=== PATIENT | female | born 1955 | race Two or more races ===

== ENCOUNTER 2018-03-26 11:49 | Day surgery (SDC) | payer MEDICARE, BC ==
--- NOTE | 2018-03-25 12:45 | Pre-op HX & Phy Repo 2 SIG ---
DATE OF ENDOSCOPY: 03/26/2018 PRE-ENDOSCOPY HISTORY AND PHYSICAL Scheduled for outpatient Kock pouch endoscopy on March 26, 2018. HISTORY OF PRESENT ILLNESS: The patient is a 63-year-old female in overall good health, who has a malfunctioning Kock pouch continent ileostomy. The patient had ulcerative colitis at age 25 and underwent proctocolectomy with Kock pouch in 1980. Recently, she has had six months of difficulty intubating about 3 inches into the stoma as well as some bleeding just inside the stoma opening itself. She has not had any incontinence. She uses a nasopharyngeal airway to intubate rather than a typical 30-Lao Silicone Medena or Yessi catheter. She states she underwent endoscopy of her pouch in 2013 and was told that her nipple valve was weak. She is scheduled to undergo Kock pouch endoscopy. She has not had any history of pouchitis. PAST MEDICAL HISTORY/MEDICATIONS: Ramipril for hypertension, Crestor, omega-3, aspirin 81 mg, and vitamins. ALLERGIES: Intravenous iodine contrast and shrimp. OPERATIONS: In addition to the above, total abdominal hysterectomy and bilateral salpingo-oophorectomy in 1990. REVIEW OF SYSTEMS: She has had kidney stones in the past. PHYSICAL EXAMINATION: GENERAL: The patient is 5 feet 1 inch, approximately 150 pounds. She is arriving from out of town, will be examined upon arrival and dictated separately. IMPRESSION: 1. Malfunctioning Kock pouch continent ileostomy with difficulty intubating and bleeding, but no incontinence. 2. History of ulcerative colitis. 3. STATUS POST MULTIPLE ABDOMINAL OPERATIONS: 1. Proctocolectomy and Kock pouch in 1980. 2. revision of Kock pouch stoma 1986 3. Total abdominal hysterectomy and bilateral salpingo-oophorectomy 1990 PLAN: I have had a full discussion with the patient regarding the nature of the endoscopy, which does not require any anesthesia or sedation, indications, alternatives, options, and risks. She understands and agrees to proceed. Valdemar Ramos M.D. DR: ARNOLOD/JULIANN JOB#: [id number] CC: ARIANA
[~2018-03-26] VITALS: Ht 154.9 cm; Wt 68.9 kg
[2018-03-26 12:24] VITALS: BP 142/78
[2018-03-26] MEDS ORDERED: CRESTOR10 M2 ORAL (12:26)
[2018-03-26] MEDS ORDERED: RAMIPRIL2.5 MG ORAL (12:26)
[2018-03-26] MEDS ORDERED: VITAMIN D400 INTLU ORAL (12:27)
[2018-03-26] MEDS ORDERED: MULTIVITAMINS1 EAC2 ORAL (12:27)
[2018-03-26] MEDS ORDERED: FISH OIL CAP1000 MG ORAL (12:27)
[2018-03-26] MEDS ORDERED: VITAMIN B125000 MCG PO (12:28)
[2018-03-26] MEDS ORDERED: VITAMIN C500 M1 ORAL (12:28)
[2018-03-26] MEDS ORDERED: CENTRUM SILVER1 EAC4 PO (12:28)
[2018-03-26] MEDS ORDERED: VITAMIN B COMP1 EAC5 PO (12:28)
[2018-03-26] MEDS ORDERED: ASPIRIN81 MG ORAL (12:28)
--- NOTE | 2018-03-26 12:47 | Pre-Procedure Note/Attestation ---
Pre-Procedure Note/Attestation Complete Prior to Procedure Planned Procedure: not applicable Procedure Narrative: Kock pouch endoscopy Indications for Procedure Pre-Operative Diagnosis: malfunctioning Kock pouch continent ileostomy Attestation I attest that I discussed the nature of the procedure; its benefits; risks and complications; and alternatives (and the risks and benefits of such alternatives ), prior to the procedure, with the patient (or the patient's legal senior sales representative). I attest that, if there was a reasonable possibility of needing a blood transfusion, the patient (or the patient's legal senior sales representative) was given the [facility] standardized written summary, pursuant to the Trey Eugene Blood Safety Act ([place] Health and Safety Code # 1645, as amended). I attest that I re-evaluated the patient just prior to the surgery and that there has been no change in the patient's H&P, except as documented below: none Valdemar Ramos MD Mar 26, 2018 12:47
--- NOTE | 2018-03-26 13:06 | Brief Operative Note ---
Immediate Post Operative Note Operative Note Pre-op Diagnosis: malfunctioning Kock pouch continent ileostomy Procedure: Kock pouch endoscopy Post-op Diagnosis: angulation of access segment at 5cm into stoma. Normal pouch and well formed nipple valve Post-op Diagnosis: same as pre-op Findings: consistent w/pre-op dx studies Surgeon: vinh Anesthesia: other - none Specimen: none Complications: none Condition: stable Fluids: none Estimated Blood Loss: none Drains: none Implant(s) used?: No Valdemar Ramos MD Mar 26, 2018 13:06
[2018-03-26 13:10] VITALS: BP 133/76
--- NOTE | 2018-03-26 16:00 | Procedure Note ---
DATE OF PROCEDURE: 03/26/2018 ENDOSCOPIST: Valdemar Ramos M.D. ANESTHESIA: None. SEDATION: None. PREENDOSCOPY DIAGNOSES: 1. Malfunctioning Kock pouch continent ileostomy with difficulty with intubation and bleeding, but no incontinence. 2. History of ulcerative colitis. 3. Status post multiple abdominal operations. 3.1. Proctocolectomy and Kock pouch in 1980. 3.2. Revision of Kock pouch stoma in 1986. 3.3. Total abdominal hysterectomy and bilateral salpingo-oophorectomy 1990 POSTENDOSCOPY DIAGNOSES: 1. Malfunctioning Kock pouch continent ileostomy with difficulty with intubation and bleeding, but no incontinence. 2. History of ulcerative colitis. 3. Status post multiple abdominal operations. 3.1. Proctocolectomy and Kock pouch in 1980. 3.2. Revision of Kock pouch stoma in 1986. 3.3. Total abdominal hysterectomy and bilateral salpingo-oophorectomy 1990 ENDOSCOPY PERFORMED: Kock pouch endoscopy. FINDINGS: A marked angulation of the access segment at approximately 5 cm into the stoma. The pouch mucosa is normal and the nipple valve was well formed. PROCEDURE: Before beginning with the endoscopy, the patient is examined. The abdomen is soft and slightly obese. There is a midline scar. The stoma of the Kock pouch is low in the right lower quadrant and within a fold so it is somewhat indented, but has a normal small orifice. The patient was positioned supine and without any anesthesia or sedation given or required and using a GIF-P140 endoscope, the stoma was entered. It required some manipulation to negotiate the angulation, but then the pouch was entered with the distance from the tip of the valve to the stoma orifice approximately 9 cm. The pouch was distensible and the mucosa normal. Retroflexed views revealed a circumferentially well-formed nipple valve. Withdrawal views confirmed the above findings. There was no source of bleeding, but multiple areas of healing irritation from her difficulty inserting her catheter, which is a nasopharyngeal airway. The patient tolerated the endoscopy well. After removing the endoscope, I was readily able to insert a 28-Salvad[place] Eckert into the pouch and decompressed it. I provided the patient with a 28-Salvadorean Eckert as well as a 30-Salvadorean Yessi and 30-Salvadorean Medena catheters. I had a full discussion with the patient and her regarding the need for laparotomy to correct this angulation and resolve her difficulty with intubation. She tolerated the endoscopy well. Valdemar Ramos M.D. DR: NANCY JOB#: [id number] CC: ARIANA
== END 2018-03-26 13:30 | disposition home or self-care (01) ==
LOC: GAS 11:49 → EDBD 13:00 → GAS 13:30
DX: K94.13 Enterostomy malfunction (principal); Y83.8 Other surgical procedures as the cause of abnormal reaction of the patient, or of later complication, without mention of misadventure at the time of the procedure; Y92.89 Other specified places as the place of occurrence of the external cause; I10 Essential (primary) hypertension; Z90.49 Acquired absence of other specified parts of digestive tract; Z90.710 Acquired absence of both cervix and uterus; Z90.722 Acquired absence of ovaries, bilateral; Z90.79 Acquired absence of other genital organ(s); Z79.82 Long term (current) use of aspirin